=== PATIENT | male | born 1995 | race Two or more races ===

== ENCOUNTER 2018-04-09 12:23 | Emergency (ER) | payer OTHER ==
[~2018-04-09] VITALS: Ht 195.6 cm; Wt 127.0 kg
[2018-04-09] MEDS ORDERED: TRAMADOL HCL 50 MG TAB PO ONE (12:30)
--- NOTE | 2018-04-09 13:51 | Diagnostic Imaging Report ---
ANKLE 3+ VIEWS LEFT, FOOT LEFT AP LAT - 3 views HISTORY: Pain . Rule out fracture. COMPARISON: None available. FINDINGS: Bones: No acute displaced fracture. Linear density projected superior to the navicular bone on the lateral view associated with overlying soft tissue swelling concerning for a small avulsion fragment. Osseous alignment is within normal limits. Joints: The joint spaces are well-maintained. Soft tissues: The soft tissues appear unremarkable. a IMPRESSION: Small avulsion fracture fragment off the dorsal aspect of the navicular bone with overlying soft tissue swelling. Signed by: Dr. Laureano Castillo M.D. on 04/09/2018 1:47 PM
== END 2018-04-09 14:59 | disposition home or self-care (01) ==
LOC: EDBD 12:23 → ER 12:23
DX: S93.402A Sprain of unspecified ligament of left ankle, initial encounter (principal); X50.1XXA Overexertion from prolonged static or awkward postures, initial encounter; Y92.830 Public park as the place of occurrence of the external cause
CPT/HCPCS: 99284